=== PATIENT | female | born 1970 | race Caucasian/White ===

== ENCOUNTER → 2016-10-02 | Outpatient (CLI) | payer BC ==
[~2016-10-02] MED LIST: LINZESS290 MCG PO; NEXIUM20 MG PO; PRILOSEC OTC20 MG PO
== END ==
LOC: KOH-I 14:05
DX: M25.511 Pain in right shoulder (principal)
CPT/HCPCS: 72070; 73030

== ENCOUNTER → 2016-10-31 | Day surgery (SDC) | payer BC ==
[~2016-10-31] VITALS: Ht 157.5 cm; Wt 63.0 kg
== END | disposition home or self-care (01) ==
LOC: OR 08:11
PROVIDERS: Internal Medicine Gastroenterology
PROC: 0DJD8ZZ Inspection of Lower Intestinal Tract, Via Natural or Artificial Opening Endoscopic (ICD-10-PCS; principal; 2016-10-31 15:30)
DX: K57.30 Diverticulosis of large intestine without perforation or abscess without bleeding (principal); K64.1 Second degree hemorrhoids; I34.1 Nonrheumatic mitral (valve) prolapse; K90.0 Celiac disease; E66.3 Overweight; I10 Essential (primary) hypertension; Z79.899 Other long term (current) drug therapy; Z87.19 Personal history of other diseases of the digestive system; Z90.49 Acquired absence of other specified parts of digestive tract; Z98.51 Tubal ligation status; Z85.828 Personal history of other malignant neoplasm of skin; Z87.440 Personal history of urinary (tract) infections
CPT/HCPCS: J2405; J7030

== ENCOUNTER 2021-06-09 13:39 | Emergency (ER) | payer OTHER ==
[~2021-06-09] VITALS: Ht 160 cm; Wt 61.2 kg
[2021-06-09 14:41] LABS: HEMOGLOBIN 13.1 gm/dl (12.3-15.3); RED BLOOD COUNT 4.29 M/UL (4.00-5.10); WHITE BLOOD COUNT 4.8 K/UL (4.5-11.0)
[2021-06-09 15:04] LABS: BUN/CREATININE RATIO 18 (0-10)
== END 2021-06-09 19:00 | disposition home or self-care (01) ==
LOC: ER1 13:39
PROVIDERS: Nurse Practitioner
DX: U07.1 COVID-19 (principal); F41.9 Anxiety disorder, unspecified; E78.5 Hyperlipidemia, unspecified; Z90.49 Acquired absence of other specified parts of digestive tract; Z23 Encounter for immunization; J45.909 Unspecified asthma, uncomplicated
CPT/HCPCS: 71045; 80053; 81001; 85025; 93005; 99285; M0243; U0002

== ENCOUNTER → 2021-06-27 | Outpatient (CLI) | payer OTHER | LOC: MAMO 09:52 | DX: Z12.31 Encounter for screening mammogram for malignant neoplasm of breast (principal) | CPT/HCPCS: 77063; 77067 ==